=== PATIENT | female | born 1990 | race Caucasian/White ===

== ENCOUNTER → 2020-07-02 08:00 | Outpatient (CLI) | payer OTHER | END | disposition home or self-care (01) | LOC: PPH VACUNA 06-29 17:00 | DX: Z23 Encounter for immunization (principal) ==

== ENCOUNTER 2021-03-03 10:10 | Outpatient (CLI) | payer OTHER | END 2021-03-03 10:30 | disposition home or self-care (01) | LOC: PPH VACUNA 10:10 | PROVIDERS: ATTEND Emergency Medicine Pediatric Emergency Medicine | DX: Z23 Encounter for immunization (principal) ==

== ENCOUNTER 2023-03-03 17:48 | Inpatient (IN) | payer OTHER ==
[~2023-03-03] VITALS: Ht 165.1 cm; Wt 59.0 kg
[2023-03-03] MEDS ORDERED: LABETALOL HCL100 MG PO (20:38)
[2023-03-03] MEDS ORDERED: DIALYVITE 800800 MCG (20:39)
[2023-03-03] MEDS ORDERED: OBSTETRIX ONE1 EAC1 PO (20:39)
[2023-03-03 23:49] LABS: HEMATOCRIT 36.8 % (36.0-45.00); HEMOGLOBIN 12.6 g/dL (12.0-15.00); MEAN CELL VOLUME 89.2 fL (80.00-100.00); MEAN CORPUSCULAR HEMOGLOBIN 30.6 pg (27.00-32.0); MEAN CORPUSCULAR HGB CONC 34.4 g/dl (32.0-36.0); PLATELET COUNT 284 K/uL (150-450); RED BLOOD COUNT 4.12 M/uL (4.00-6.00); RED CELL DISTRIBUTION WIDTH 13.1 % (11.5-14.5)
[2023-03-04 00:03] LABS: PARTIAL THROMBOPLASTIN TIME 27.9 SECONDS (22.0-34.0); PROTHROMBIN TIME 10.5 SECONDS (9.0-11.5)
[2023-03-04 00:09] LABS: CALCIUM 9.2 mg/dL (8.5-10.1); CREATININE SERUM 0.78 mg/dL (0.55-1.02); GFR 84.54; POTASSIUM 3.45 mEq/L (3.5-5.1)
[2023-03-04 00:12] LABS: PH,URINE 6.5 (5.0-8.0); URINE APPEARANCE Clear; URINE BILIRRUBIN Negative (NEGATIVE); URINE BLOOD Negative; URINE COLOR Yellow; URINE GLUCOSE Negative (NEGATIVE); URINE LEUKOCYTE Negative; URINE NITRATE Negative; URINE PROTEIN Negative (NEGATIVE); URINE UROBILINOGEN 0.2 E.U./dl
[2023-03-04 00:16] LABS: URINE BACTERIA 22.6 uL (0.0-1933); URINE RBC 4.1 uL (0.0-20.8); URINE WBC 5.3 uL (0.0-23.2)
[2023-03-04 00:17] LABS: URINE EPITHELIAL CELLS 1.3 uL (0.0-38.8)
[2023-03-04 05:44] LABS: HEMATOCRIT 35.2 % (36.0-45.00); MEAN CELL VOLUME 89.2 fL (80.00-100.00); MEAN CORPUSCULAR HEMOGLOBIN 30.4 pg (27.00-32.0); MEAN CORPUSCULAR HGB CONC 34.1 g/dl (32.0-36.0); PLATELET COUNT 264 K/uL (150-450); RED BLOOD COUNT 3.94 M/uL (4.00-6.00); RED CELL DISTRIBUTION WIDTH 13.5 % (11.5-14.5)
[2023-03-04 10:12] LABS: ALBUMIN 4.1 gm/dL (3.4-5.0); BILIRUBIN TOTAL 0.81 mg/dL (0.3-1.2); CALCIUM 9.2 mg/dL (8.5-10.1); CREATININE SERUM 0.67 mg/dL (0.55-1.02); GFR 100.75; GLOBULINA 3.3 G/DL (2.4-3.5); POTASSIUM 4.2 mEq/L (3.5-5.1); TOTAL PROTEIN 7.4 gm/dL (6.4-8.2)
[2023-03-04 17:33] LABS: HEMATOCRIT 35.7 % (36.0-45.00); MEAN CORPUSCULAR HEMOGLOBIN 29.6 pg (27.00-32.0); MEAN CORPUSCULAR HGB CONC 33.6 g/dl (32.0-36.0); PLATELET COUNT 265 K/uL (150-450); RED BLOOD COUNT 4.06 M/uL (4.00-6.00); RED CELL DISTRIBUTION WIDTH 13.1 % (11.5-14.5)
== END 2023-03-05 14:58 | disposition home or self-care (01) | DRG 819 ==
LOC: ER 17:49 → SEC-K 03-04 09:20 → OB/GYN 03-04 09:20
PROVIDERS: General Practice; ADMIT General Practice; ATTEND General Practice
PROC: 10D24ZZ Extraction of Products of Conception, Ectopic, Percutaneous Endoscopic Approach (ICD-10-PCS; 2023-03-04)
PROC: 0UN54ZZ Release Right Fallopian Tube, Percutaneous Endoscopic Approach (ICD-10-PCS; 2023-03-04)
PROC: 0UB14ZZ Excision of Left Ovary, Percutaneous Endoscopic Approach (ICD-10-PCS; 2023-03-04)
PROC: 0DNU4ZZ Release Omentum, Percutaneous Endoscopic Approach (ICD-10-PCS; principal; 2023-03-04 10:00)
DX: O00.101 Right tubal pregnancy without intrauterine pregnancy (principal); N83.11 Corpus luteum cyst of right ovary; Z20.822 Contact with and (suspected) exposure to COVID-19

== ENCOUNTER 2023-03-24 15:40 | Inpatient (IN) | payer OTHER ==
[~2023-03-24] VITALS: Ht 165.1 cm; Wt 59.0 kg
[~2023-03-24 15:40] MED LIST: DIALYVITE 800800 MCG; LABETALOL HCL100 MG PO; OBSTETRIX ONE1 EAC1 PO
[2023-03-24 16:25] LABS: HEMATOCRIT 36.5 % (36.0-45.00); HEMOGLOBIN 12.3 g/dL (12.0-15.00); MEAN CELL VOLUME 88.1 fL (80.00-100.00); MEAN CORPUSCULAR HEMOGLOBIN 29.8 pg (27.00-32.0); MEAN CORPUSCULAR HGB CONC 33.9 g/dl (32.0-36.0); PLATELET COUNT 398 K/uL (150-450); RED BLOOD COUNT 4.14 M/uL (4.00-6.00)
[2023-03-24 16:28] LABS: PH,URINE 5.5 (5.0-8.0); URINE APPEARANCE Clear; URINE BILIRRUBIN Negative (NEGATIVE); URINE BLOOD Negative; URINE COLOR Yellow; URINE GLUCOSE Negative (NEGATIVE); URINE LEUKOCYTE Negative; URINE NITRATE Negative; URINE PROTEIN Negative (NEGATIVE)
[2023-03-24 16:31] LABS: URINE BACTERIA 473.6 uL (0.0-1933); URINE EPITHELIAL CELLS 36.3 uL (0.0-38.8); URINE WBC 8.6 uL (0.0-23.2)
[2023-03-24 16:49] LABS: BILIRUBIN TOTAL 0.49 mg/dL (0.3-1.2); CALCIUM 9.1 mg/dL (8.5-10.1); CREATININE SERUM 0.84 mg/dL (0.55-1.02); GFR 77.61; GLOBULINA 3.7 G/DL (2.4-3.5); POTASSIUM 4.1 mEq/L (3.5-5.1); TOTAL PROTEIN 7.7 gm/dL (6.4-8.2)
[2023-03-25] MEDS ORDERED: CARVEDILOL3.125 M1 (08:16)
[2023-03-25] MEDS ORDERED: EZETIMIBE10 MG (08:16)
[2023-03-25 15:52] LABS: CALCIUM 8.7 mg/dL (8.5-10.1); CREATININE SERUM 0.84 mg/dL (0.55-1.02); GFR 77.61; POTASSIUM 3.83 mEq/L (3.5-5.1)
== END 2023-03-26 18:02 | disposition home or self-care (01) | DRG 863 ==
LOC: OB/GYN 15:40 → SEC-K 15:40 → OB/GYN 16:02
PROVIDERS: Internal Medicine; ADMIT General Practice; ATTEND General Practice
PROC: 8E0ZXY6 Isolation (ICD-10-PCS; principal; 2023-03-24)
DX: T81.49XA Infection following a procedure, other surgical site, initial encounter (principal); T78.40XA Allergy, unspecified, initial encounter; Y65.8 Other specified misadventures during surgical and medical care; Z20.822 Contact with and (suspected) exposure to COVID-19

== ENCOUNTER 2024-07-04 14:13 | Emergency (ER) | payer OTHER ==
[~2024-07-04] VITALS: Ht 165.1 cm; Wt 60.8 kg
[~2024-07-04 14:13] MED LIST changes: +CARVEDILOL3.125 M1; +EZETIMIBE10 MG
[2024-07-04] MEDS ORDERED: 0.9 % SODIUM CHLORIDE 1,000 ML IV ONE (16:30)
[2024-07-04] MEDS ORDERED: TRAMADOL HCL 50 MG TABLET PO ONE (16:30)
[2024-07-04] MEDS ORDERED: FAMOtidine 10 MG/ML (4ML VIAL) IV ONE (16:30)
[2024-07-04] MEDS ORDERED: FAMOTIDINE/PF 20 MG/2 ML VIAL ONE (16:49)
[2024-07-04 17:20] LABS: HEMATOCRIT 41.8 % (36.0-45.00); HEMOGLOBIN 14.3 g/dL (12.0-15.00); MEAN CELL VOLUME 87.1 fL (80.00-100.00); MEAN CORPUSCULAR HEMOGLOBIN 29.8 pg (27.00-32.0); MEAN CORPUSCULAR HGB CONC 34.2 g/dl (32.0-36.0); PLATELET COUNT 299 K/uL (150-450); RED CELL DISTRIBUTION WIDTH 13.4 % (11.5-14.5)
[2024-07-04 17:46] LABS: INR 0.99; PARTIAL THROMBOPLASTIN TIME 29.8 SECONDS (22.0-34.0); PROTHROMBIN TIME 10.8 SECONDS (9.0-11.5)
[2024-07-04 17:55] LABS: ALKALINE PHOSPHATASE 102 U/L (50-136); ALT/SGPT 16 U/L (12-78); AMYLASE 79 U/L (25-115); ANION GAP 12 (10.0-20.0); AST/SGOT 15 U/L (15-37); BILIRUBIN TOTAL 0.56 mg/dL (0.3-1.2); BLOOD UREA NITROGEN 13 mg/dL (7-18); BUN CREA RATIO 18 (7.0-25.0); CALCIUM 9.7 mg/dL (8.5-10.1); CARBON DIOXIDE 28 mEq/L (21-32); CHLORIDE 104 mmol/L (98-107); CREATININE SERUM 0.74 mg/dL (0.55-1.02); GLOBULINA 3.7 G/DL (2.4-3.5); GLUCOSE FASTING 85 mg/dL (65-100); LIPASE 53 U/L (13-75); OSMOLALITY SERUM 279 MOSM/KG (275-295); POTASSIUM 4.35 mEq/L (3.5-5.1); SODIUM 140 mmol/L (136-145); TOTAL PROTEIN 7.7 gm/dL (6.4-8.2)
[2024-07-04 17:56] LABS: HCG QUANTITATIVE < 1 mUI/mL (1-3)
[2024-07-04 19:09] LABS: URINE APPEARANCE Clear; URINE BILIRRUBIN Negative (NEGATIVE); URINE BLOOD Small; URINE COLOR Yellow; URINE GLUCOSE Negative (NEGATIVE); URINE KETONE Negative (NEGATIVE); URINE LEUKOCYTE Negative; URINE NITRATE Negative; URINE PROTEIN Negative (NEGATIVE); URINE UROBILINOGEN 0.2 E.U./dl
[2024-07-04 19:13] LABS: URINE BACTERIA 23.5 uL (0.0-1933); URINE EPITHELIAL CELLS 15.3 uL (0.0-38.8); URINE RBC 31.5 uL (0.0-20.8)
[2024-07-04 19:16] LABS: URINE WBC 1.2 uL (0.0-23.2)
[2024-07-04] MEDS ORDERED: PROTONIX40 MG PO (22:15)
[2024-07-04] MEDS ORDERED: NORFLEX100MG PO (22:16)
[2024-07-04] MEDS ORDERED: KETOROLAC TROMETHAMINE 60 MG VIAL IM ONE ×2 (22:26→22:30)
== END 2024-07-04 22:26 | disposition home or self-care (01) ==
LOC: ER 14:14
PROVIDERS: General Practice
DX: R10.11 Right upper quadrant pain (principal); I10 Essential (primary) hypertension; Z88.2 Allergy status to sulfonamides; E78.00 Pure hypercholesterolemia, unspecified

== ENCOUNTER 2024-07-06 09:37 | Outpatient (CLI) | payer OTHER ==
[~2024-07-06 09:37] MED LIST changes: +NORFLEX100MG PO; +PROTONIX40 MG PO
== END 2024-07-06 09:47 | disposition home or self-care (01) ==
LOC: TOM 09:37
PROVIDERS: ATTEND Obstetrics & Gynecology Maternal & Fetal Medicine
DX: R10.32 Left lower quadrant pain (principal); K57.92 Diverticulitis of intestine, part unspecified, without perforation or abscess without bleeding

== ENCOUNTER 2024-11-30 16:17 | Emergency (ER) | payer OTHER ==
[~2024-11-30] VITALS: Ht 165.1 cm; Wt 61.7 kg
[2024-11-30 17:58] LABS: BASO % 0.4 % (0.1-1.2); EOS # 0.31 (0.04-0.54); EOS % 2.3 % (0.7-7.0); LYMPH # 2.64 (1.18-3.74); LYMPH % 19.7 % (19.3-53.1); MEAN PLATELET VOLUME 10.20 fl (9.4-12.4); MONO # 0.65 (0.24-0.82); MONO % 4.9 % (4.7-12.5); NEUT # 9.67 (1.56-6.13); NEUT % 72.4 % (34.0-71.1); RED CELL DISTRIBUTION WIDTH 12.9 % (11.6-14.4)
[2024-11-30 18:24] LABS: ALT/SGPT 17.0 U/L (12-78); AST/SGOT 15.0 U/L (15-37); BILIRUBIN TOTAL 0.28 mg/dL (0.3-1.2); BUN CREA RATIO 9.0 (7.0-25.0); CREATININE SERUM 0.55 mg/dL (0.55-1.02); GFR 125.06; GLOBULINA 3.9 G/DL (2.4-3.5); GLUCOSE FASTING 110.0 mg/dL (65-100); OSMOLALITY SERUM 279.0 MOSM/KG (275-295)
[2024-11-30 18:41] LABS: COVID-19 AG NEGATIVE (NEGATIVE)
[2024-11-30 21:44] LABS: URINE APPEARANCE Clear; URINE BILIRRUBIN Negative (NEGATIVE); URINE BLOOD Negative; URINE COLOR Yellow; URINE GLUCOSE Negative (NEGATIVE); URINE KETONE Negative (NEGATIVE); URINE LEUKOCYTE Negative; URINE NITRATE Negative; URINE PROTEIN Negative (NEGATIVE); URINE UROBILINOGEN 0.2 E.U./dl
[2024-11-30 21:48] LABS: URINE BACTERIA 21.6 uL (0.0-1933); URINE EPITHELIAL CELLS 5.5 uL (0.0-38.8); URINE RBC 14.2 uL (0.0-20.8)
[2024-11-30 21:54] LABS: URINE CAST 0.00 uL (0.0-1.40); URINE WBC 0.3 uL (0.0-23.2)
== END 2024-12-01 01:14 | disposition home or self-care (01) ==
LOC: ER 16:18
PROVIDERS: Preventive Medicine Public Health & General Preventive Medicine
DX: O26.892 Other specified pregnancy related conditions, second trimester (principal); R42 Dizziness and giddiness; O10.912 Unspecified pre-existing hypertension complicating pregnancy, second trimester; Z3A.14 14 weeks gestation of pregnancy; Z20.822 Contact with and (suspected) exposure to COVID-19; Z88.8 Allergy status to other drugs, medicaments and biological substances